=== PATIENT | female | born 1940 | race Caucasian/White ===

== ENCOUNTER 2020-01-22 10:23 | Inpatient (IN) | payer MEDICARE ==
--- NOTE | 2020-01-22 10:56 | ER Document Report ---
ED Medical Screen (RME) - General Chief Complaint: Medical Complaint Stated Complaint: WEAKNESS Time Seen by Provider: 01/22/20 10:44 Mode of Arrival: Medic Information source: Patient Notes: 79-year-old female presented to ED for multiple complaints. Daughter states that her son found her disoriented this morning but patient is answering all questions appropriate she is alert and oriented right now. She also has grossly edematous bilateral upper legs knees lower legs and feet both feet legs are extremely excoriated and weeping. She does have continence pads wrapped around and taped to both legs due to the weeping. Daughter states there is blackness on the one of the incontinence pads. These will all need to be removed when in a bed where will be a lot more comfortable for the patient. Her feet have toenails that are very long and not cared for. Patient is in a very unkempt state at this time. She states she stays in the bed most of the time. 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 I have greeted and performed a rapid initial assessment of this patient. A comprehensive ED assessment and evaluation of the patient, analysis of test results and completion of medical decision making process will be conducted by an additional ED providers. - Related Data Allergies/Adverse Reactions: aspirin Allergy (Verified 01/22/20 10:53) ibuprofen [From Motrin] Allergy (Verified 01/22/20 10:53) Penicillins Allergy (Verified 01/22/20 10:53) Physical Exam - Vital signs Vitals: Temp Pulse Resp BP Pulse Ox 97.6 F 85 20 141/60 H 97 01/22/20 10:01/22/20 10:01/22/20 10:01/22/20 10:29 01/22/20 10:29 Course - Vital Signs Vital signs: Temp Pulse Resp BP Pulse Ox 97.6 F 85 20 141/60 H 97 01/22/20 10:01/22/20 10:29 01/22/20 10:29 01/22/20 10:29 01/22/20 10:29
[2020-01-22 11:41] LABS: INTERNATIONAL RATION (INR) 1.43; PROTHROMBIN TIME 17.6 SEC (11.4-15.4)
[2020-01-22 11:42] LABS: HEMATOCRIT 40.8 % (36.0-47.0); HEMOGLOBIN 13.5 g/dL (12.0-15.5); MEAN CORPUSCULAR HEMOGLOBIN 29.8 pg (27.0-33.4); MEAN CORPUSCULAR HGB CONC 33.2 g/dL (32.0-36.0); MEAN CORPUSCULAR VOLUME 90 fl (80-97); RED BLOOD COUNT 4.54 10^6/uL (3.72-5.28); RED CELL DISTRIBUTION WIDTH 13.8 % (11.5-14.0); WHITE BLOOD COUNT 26.6 10^3/uL (4.0-10.5)
[2020-01-22 12:00] LABS: ABSOLUTE LYMPHOCYTES# (MANUAL) 1.3 10^3/uL (0.5-4.7); ABSOLUTE MONOCYTES # (MANUAL) 1.3 10^3/uL (0.1-1.4); BAND NEUTROPHILS % (MANUAL) 2 % (3-5); BASOPHILS % (MANUAL) 0 % (0-2); EOSINOPHILS % (MANUAL) 1 % (0-6); LYMPHOCYTES % (MANUAL) 4 % (13-45); MONOCYTES % (MANUAL) 5 % (3-13); SEGMENTED NEUTROPHILS % (MAN) 87 % (42-78); TOTAL CELLS COUNTED 100
[2020-01-22 12:01] LABS: PLATELET CLUMPS PRESENT; PLATELET COMMENT ADEQUATE; RBC MORPHOLOGY COMMENT NORMO-CYTIC/CHROMIC
[2020-01-22 12:02] LABS: PLATELET COUNT 254 10^3/uL (150-450)
[2020-01-22 12:06] LABS: ALKALINE PHOSPHATASE 50 U/L (38-126); ANION GAP 10 (5-19); ASPARTATE AMINO TRANSFERASE 50 U/L (14-36); BILIRUBIN,DIRECT 0.5 mg/dL (0.0-0.4); BILIRUBIN,TOTAL 1.1 mg/dL (0.2-1.3); BLOOD UREA NITROGEN 32 mg/dL (7-20); CALCIUM 8.9 mg/dL (8.4-10.2); CARBON DIOXIDE 22 mmol/L (22-30); CHLORIDE 100 mmol/L (98-107); CREATINE KINASE 559 U/L (30-135); GLUCOSE 109 mg/dL (75-110); POTASSIUM 4.6 mmol/L (3.6-5.0); TOTAL PROTEIN 7.7 g/dL (6.3-8.2)
--- NOTE | 2020-01-22 12:32 | RADIOLOGY REPORT (SQ) ---
EXAM DESCRIPTION: CT HEAD WITHOUT IMAGES COMPLETED DATE/TIME: 01/22/2020 12:13 pm REASON FOR STUDY: Disoriented this morning COMPARISON: None. TECHNIQUE: Axial images acquired through the brain without intravenous contrast. Images reviewed wi th bone, brain and subdural windows. Additional sagittal and coronal reconstructions were generated. Images stored on PACS. All CT scanners at this facility use dose modulation, iterative reconstruction, and/or weight based d osing when appropriate to reduce radiation dose to as low as reasonably achievable (ALARA). [facility]: Dose Right [facility]: CareDose [facility]: Dose Right [facility]: Teradose 4D [facility]: Smart Patient Education Systems RADIATION DOSE: CT Rad equipment meets quality standard of care and radiation dose reduction techniq ues were employed. CTDIvol: 53.2 mGy. DLP: 991 mGy-cm. mGy. LIMITATIONS: None. FINDINGS: VENTRICLES: Prominent. CEREBRUM: No masses. No hemorrhage. No midline shift. Areas of low density in the white matter mos t likely due to chronic micro-vascular ischemic change. No evidence for acute infarction. CEREBELLUM: No masses. No hemorrhage. No alteration of density. No evidence for acute infarction. EXTRAAXIAL SPACES: Mild age-related involutional change. No fluid collections. No masses. ORBITS AND GLOBE: No intra- or extraconal masses. Normal contour of globe without masses. CALVARIUM: No fracture. PARANASAL SINUSES: No fluid or mucosal thickening. SOFT TISSUES: No mass or hematoma. OTHER: No other significant finding. IMPRESSION: MILD CHRONIC CHANGES OF ATROPHY AND MICROVASCULAR ISCHEMIA. NO ACUTE PROCESS. EVIDENCE OF ACUTE STROKE: NO. TECHNICAL DOCUMENTATION: JOB ID: [id number] Quality ID # [id number]: Final reports with documentation of one or more dose reduction techniques (e.g., Au tomated exposure control, adjustment of the mA and/or kV according to patient size, use of iterative reconstruction technique) 2010 [employer]- All Rights Reserved Reading location - IP/workstation name: [email or web address]
[2020-01-22 14:50] LABS: APPEARANCE,URINE SLIGHTLY-CLOUDY; BILIRUBIN,URINE NEGATIVE (NEGATIVE); COLOR,URINE AMBER; GLUCOSE, URINE NEGATIVE (NEGATIVE); KETONES,URINE NEGATIVE (NEGATIVE); LEUKOCYTE ESTERASE,URINE NEGATIVE (NEGATIVE); NITRITE,URINE NEGATIVE (NEGATIVE); PROTEIN,URINE 100 mg/dL (NEGATIVE); URINE SPECIFIC GRAVITY 1.029
--- NOTE | 2020-01-22 14:55 | RADIOLOGY REPORT (SQ) ---
EXAM DESCRIPTION: CHEST SINGLE VIEW IMAGES COMPLETED DATE/TIME: 01/22/2020 2:29 pm REASON FOR STUDY: heart murmur/decreased breath sounds. COMPARISON: None. EXAM PARAMETERS: NUMBER OF VIEWS: One view. TECHNIQUE: Single frontal radiographic view of the chest acquired. RADIATION DOSE: NA LIMITATIONS: None. FINDINGS: LUNGS AND PLEURA: No opacities, masses or pneumothorax. No pleural effusion. 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 HEART AND VASCULAR STRUCTURES: Cardiomegaly without central vascular congestion. BONES: No acute findings. HARDWARE: None in the chest. OTHER: A large hiatal hernia may be present. 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 No acute pulmonary findings . TECHNICAL DOCUMENTATION: JOB ID: [id number] 2010 [employer]- All Rights Reserved Reading location - IP/workstation name: [email or web address]
[2020-01-22] MEDS ORDERED: CLINDAMYCIN 900 MG/D5W RTU 900 MG/50 ML RTUPB IV ONE (14:56)
[2020-01-22] MEDS ORDERED: VANCOMYCIN HCL INJ 1000 MG VIAL IV ONE (14:57)
--- NOTE | 2020-01-22 14:59 | RADIOLOGY REPORT (SQ) ---
EXAM DESCRIPTION: TIB FIB BILAT 2 VIEWS IMAGES COMPLETED DATE/TIME: 01/22/2020 2:30 pm REASON FOR STUDY: swelling pain bilat lower exts COMPARISON: None. NUMBER OF VIEWS: Two views. TECHNIQUE: Two radiographic images acquired of the right and left tibia and fibula to include the kn ee and ankle in at least one projection. LIMITATIONS: None. FINDINGS: MINERALIZATION: Decreased. BONES: No acute fracture dislocation. Tricompartment osteophytosis at the knees bilaterally. Degene rative changes at the bilateral ankles. SOFT TISSUES: . Extensive subcutaneous edema. No radiopaque foreign body. OTHER: No other significant finding. IMPRESSION: No evidence of acute bony abnormality of either tibia or fibula. Significant bilateral lower extremity subcutaneous edema. TECHNICAL DOCUMENTATION: JOB ID: [id number] 2010 [employer]- All Rights Reserved Reading location - IP/workstation name: [email or web address]
[2020-01-22] MEDS ORDERED: AZTREONAM INJ 1 GM VIAL IV ONE (15:00)
--- NOTE | 2020-01-22 15:37 | RADIOLOGY REPORT (SQ) ---
EXAM DESCRIPTION: VENOUS BILATERAL LOWER IMAGES COMPLETED DATE/TIME: 01/22/2020 3:23 pm REASON FOR STUDY: bilat leg pain/swelling COMPARISON: Same day radiograph TECHNIQUE: Dynamic and static amador scale and color images acquired of both lower extremity venous sy stems. Selected spectral images acquired with additional compression and augmentation maneuvers. Imag es stored on PACS. LIMITATIONS: Limited evaluation of the distal extremities due to lower extremity edema. FINDINGS: RIGHT LEG COMMON FEMORAL AND FEMORAL: Normal phasicity, compression and augmentation. No visualized echogenic m aterial on amador scale. No defects on color images. POPLITEAL: Normal compression and augmentation. No visualized echogenic material on amador scale. No de fects on color images. CALF VESSELS: Limited evaluation. GSV AND SSV: Normal compression. No visualized echogenic material on amador scale. No defects on color images. ANY DEEP VENOUS INSUFFICIENCY: Not evaluated. ANY EVIDENCE OF POPLITEAL CYST: No. OTHER: Significant subcutaneous edema. LEFT LEG COMMON FEMORAL AND FEMORAL: Normal phasicity, compression and augmentation. No visualized echogenic m aterial on amador scale. No defects on color images. POPLITEAL: Normal compression and augmentation. No visualized echogenic material on amador scale. No de fects on color images. CALF VESSELS: Limited evaluation. GSV AND SSV: Normal compression. No visualized echogenic material on amador scale. No defects on color images. ANY DEEP VENOUS INSUFFICIENCY: Not evaluated. ANY EVIDENCE POPLITEAL CYST: No. OTHER: Significant subcutaneous edema. IMPRESSION: No evidence of DVT or SVT to the level of the popliteal veins in either lower extremity. Limited evaluation of the tibials secondary to excessive edema. TECHNICAL DOCUMENTATION: JOB ID: [id number] 2010 [employer]- All Rights Reserved Reading location - IP/workstation name: [email or web address]
[2020-01-22] MEDS ORDERED: NORMAL SALINE 1000 ML 1,000 ML IV ONE (15:46)
[2020-01-22] MEDS ORDERED: DILTIAZEM HCL/D5W 125 MG/125 ML RTUINJ IV PRN (15:47)
--- NOTE | 2020-01-22 17:36 | ER Document Report ---
Entered by DANA ALMAGUER SCRIBE 01/22/20 [id number] Acting as scribe for:ANTONIA LOVE MD ED General - General Chief Complaint: Medical Complaint Stated Complaint: WEAKNESS Time Seen by Provider: 01/22/20 10:44 Mode of Arrival: Medic Information source: Patient, Relative - Daughter Notes: This 79 year old female patient presents to the ED via EMS with complaints of altered mental status. Daughter at bedside reports that her son called EMS because the patient was "disoriented" this morning. Daughter also reports that she believes the patient appears paler than the last time she saw her which was this past weekend. Patient is alert and able to answer questions appropriately. She reports that her legs are sore, but denies fever, shortness of breath, headache, chest pain, abdominal pain, sore throat, or known COVID exposure. She states that she did not eat breakfast this morning and that her last bowel movement was yesterday. Patient reports a history of rheumatoid arthritis, hemophilia, heart murmur, and appendectomy. - Related Data Allergies/Adverse Reactions: aspirin Allergy (Verified 01/22/20 10:53) diphenhydramine [From Benadryl] Allergy (Verified 01/22/20 16:23) ibuprofen [From Motrin] Allergy (Verified 01/22/20 10:53) Iodinated Contrast Media Allergy (Verified 01/22/20 16:23) Penicillins Allergy (Verified 01/22/20 10:53) Past Medical History - General Information source: Patient, [facility] Records - Social History Smoking Status: Never Smoker Cigarette use (# per day): No Chew tobacco use (# tins/day): No Smoking Education Provided: No Frequency of alcohol use: None Lives with: Family Family History: Reviewed & Not Pertinent - Past Medical History Cardiac Medical History: Reports: Hx Heart Murmur, Other - Hx Hemophilia Musculoskeletal Medical History: Reports Hx Arthritis Past Surgical History: Reports: Hx Appendectomy Review of Systems - Review of Systems Constitutional: See HPI. denies: Fever EENT: See HPI. denies: Throat pain Cardiovascular: See HPI. denies: Chest pain Respiratory: See HPI. denies: Short of breath Gastrointestinal: See HPI. denies: Abdominal pain, Diarrhea, Nausea, Vomiting Genitourinary: No symptoms reported Female Genitourinary: No symptoms reported Musculoskeletal: See HPI, Leg swelling - and pain Skin: No symptoms reported Hematologic/Lymphatic: No symptoms reported Neurological/Psychological: See HPI, Other - Altered mental status. denies: Headaches -: Yes All other systems reviewed and negative Physical Exam - Vital signs Vitals: Temp Pulse Resp BP Pulse Ox 97.6 F 85 20 141/60 H 97 01/22/20 10:29 01/22/20 10:29 01/22/20 10:29 01/22/20 10:29 01/22/20 10:29 - General General appearance: Alert In distress: None - HEENT Head: Normocephalic, Atraumatic Eyes: Normal Pupils: PERRL - Respiratory Respiratory status: No respiratory distress Chest status: Nontender Breath sounds: Normal Chest palpation: Normal - Cardiovascular Rhythm: Regular Murmur: Yes Systolic murmur grade 1-6: 2 Friction rub: No Gallop: None auscultated - Abdominal Inspection: Obese Distension: No distension Bowel sounds: Normal Tenderness: Nontender Organomegaly: No organomegaly - Back Back: Normal, Nontender - Extremities General upper extremity: Normal inspection - red color General lower extremity: Tender - Bilateral lower extremity tenderness to touch, Edema - Bilateral lower extremities are swollen with cobblestoned skin that have multiple superficial punctate abrasions.. No: Normal color Foot: Other - Toenails appear mycotic, Toenail on left great toe is loose - Neurological Neuro grossly intact: Yes Orientation: AAOx4 [place] Coma Scale Eye Opening: Spontaneous [place] Coma Scale Verbal: Oriented [place] Coma Scale Motor: Obeys Commands [place] Coma Scale Total: 15 - Psychological Associated symptoms: Normal affect, Normal mood - Skin Skin Temperature: Warm Skin Moisture: Dry Skin Color: Normal Course - Re-evaluation Re-evalutation: 01/23/20 04:10 patien has been resting comfortably in bed. - Vital Signs Vital signs: Temp Pulse Resp BP Pulse Ox 99.3 F 79 16 149/62 H 94 01/23/20 00:23 01/23/20 00:23 01/23/20 00:23 01/23/20 00:23 01/23/20 00:23 01/23/20 04:12 vital signs stable. - Laboratory Result Diagrams: 01/22/20 11:17 01/22/20 11:17 Laboratory results interpreted by me: 10/01/22/20 01/22/20 11:17 11:17 11:17 WBC 26.6 H Seg Neuts % (Manual) 87 H Band Neutrophils % 2 L Lymphocytes % (Manual) 4 L Abs Neuts (Manual) 23.7 H PT 17.6 H APTT 38.0 H D-Dimer Sodium 132.3 L BUN 32 H Creatinine 1.36 H Est GFR ( Amer) 46 L Est GFR (MDRD) Non-Af 38 L Direct Bilirubin 0.5 H AST 50 H Creatine Kinase 559 H Urine Protein Urine Blood Urine Urobilinogen 01/22/20 01/22/20 11:17 14:34 WBC Seg Neuts % (Manual) Band Neutrophils % Lymphocytes % (Manual) Abs Neuts (Manual) PT APTT D-Dimer 2.12 H Sodium BUN Creatinine Est GFR ( Amer) Est GFR (MDRD) Non-Af Direct Bilirubin AST Creatine Kinase Urine Protein 100 H Urine Blood SMALL H Urine Urobilinogen 2.0 H 01/23/20 04:13 elevated WBC 27K, and bun/cr elevated 32/1.36, and d dimer positive at 2.12. Pateint has cellulitis and elevated WBC count due to skin infection. Apparent acut kidney injury. - Diagnostic Test Radiology results interpreted by me: 01/23/20 04:[address] 01/22/20 10:52 IMPRESSION: MILD CHRONIC CHANGES OF ATROPHY AND MICROVASCULAR ISCHEMIA. NO ACUTE PROCESS. EVIDENCE OF ACUTE STROKE: NO. 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 No acute pulmonary findings. Tibia/Fibula X-Ray 01/22/20 13:28 IMPRESSION: No evidence of acute bony abnormality of either tibia or fibula. Significant bilateral lower extremity subcutaneous edema. Venous Doppler Study 01/22/20 13:29 IMPRESSION: No evidence of DVT or SVT to the level of the popliteal veins in either lower extremity. Limited evaluation of the tibials secondary to excessive edema. Ct scan of head shows no acute process, and no evidence of Stroke. Chest xray with Cardiomegaly, aortic arch ?aneursym, and clear lung verduzco. Bilateral tibfib xrays shows significant edema without any bony injuries. Bilat venous doppler exam shows no evidence of DVT or SVT in either leg. Discharge - Discharge Clinical Impression: Cellulitis of both lower extremities, Acute kidney injury Leukocytosis Qualifiers: Leukocytosis type: bandemia Qualified Code(s): D72.825 - Bandemia Venous stasis dermatitis Qualifiers: Laterality: bilateral Qualified Code(s): I87.2 - Venous insufficiency (chronic) (peripheral) Condition: Good Disposition: ADMITTED INPATIENT Admitting Provider: Nivia (Hospitalist) Unit Admitted: Medical Floor I personally performed the services described in the documentation, reviewed and edited the documentation which was dictated to the scribe in my presence, and it accurately records my words and actions.
[2020-01-22] MEDS ORDERED: AZTREONAM INJ 1 GM VIAL ONE (17:56)
[2020-01-22] MEDS ORDERED: MAGNESIUM HYDROXIDE SUSP 30 ML UDCUP PO PRN (20:06)
[2020-01-22] MEDS ORDERED: ONDANSETRON 4 MG TAB.RAPDIS PO PRN (20:06)
[2020-01-22] MEDS ORDERED: OXYCODONE-ACETAMINOPHEN 5-325 MG TABLET PO PRN (20:06)
[2020-01-22] MEDS ORDERED: TEMAZEPAM 7.5 MG CAPSULE PO PRN (20:06)
[2020-01-22] MEDS ORDERED: MAG HYDROX/AL HYDROX/SIMETH SUSP 30 ML UDCUP PO PRN (20:06)
--- NOTE | 2020-01-22 20:46 | PDOC H&P ---
History of Present Illness Admission Date/PCP: 01/22/20 17:55 YAMILETH TYJaquan Patient complains of: Swollen red painful legs History of Present Illness: RAFAL BORJA is a 79 year old female with only reported history of venous insufficiency presents with red painful swollen legs. The patient's daughter as well as the patient endorses several weeks of worsening. The daughter reports that in fact it has been longer. The cobblestoning and keratin scaling of the skin suggest significant chronicity. The patient is afebrile however her white blood cell count is 26.6 with 2% bands. D-dimer is elevated at 2.12. Doppler studies are negative for DVT. The elevated D-dimer certainly could be due to the significant inflammation of both legs. The patient is also complaining of discomfort on her heels. She has several ayo horn toenails both generalized e rythema to the level of the knee. The patient and her daughter are poor historians. The patient will be admitted to the hospital service. She will be given IV antibiotics. Wound care consult will be obtained. The patient will benefit from treatment of the ulcerations as well as compression therapy. The antibiotics should resolve the leukocytosis. Because of her multiple allergies clindamycin and aztreonam will be used. She also received a dose of vancomycin in the emergency department. Past Medical History Cardiac Medical History: Reports: Heart Murmur, Other - Hx Hemophilia Pulmonary Medical History: Denies: Chronic Obstructive Pulmonary Disease (COPD), Pneumonia, Respiratory Failure EENT Medical History: Reports: Cataracts Neurological Medical History: Denies: Ischemic CVA, Seizures Endocrine Medical History: Denies: Diabetes Mellitus Type 2 Renal/ Medical History: Denies: Chronic Kidney Disease Malignancy Medical History: Reports: None GI Medical History: Denies: Cirrhosis, Gastroesophageal Reflux Disease, Peptic Ulcer Disease Musculoskeltal Medical History: Reports: Arthritis Skin Medical History: Reports: Other - Stasis dermatitis Psychiatric Medical History: Denies: Alcohol Dependency, Substance Abuse, Tobacco Dependency Traumatic Medical History: Reports: None Hematology: Reports: None Infectious Medical History: Reports: None Past Surgical History Past Surgical History: Reports: Appendectomy Social History Information Source: Patient, Relative Lives with: Family Smoking Status: Never Smoker Electronic Cigarette use?: No Frequency of Alcohol Use: None Hx Recreational Drug Use: No Hx Prescription Drug Abuse: No - Advance Directive Resuscitation Status: Full Code Family History Family History: CAD, Malignancy, Other - Asthma, bronchiolitis, rheumatoid arthritis Parental Family History Reviewed: Yes Children Family History Reviewed: Yes Sibling(s) Family History Reviewed.: Yes Medication/Allergy Allergies/Adverse Reactions: aspirin Allergy (Verified 01/22/20 10:53) diphenhydramine [From Benadryl] Allergy (Verified 01/22/20 16:23) ibuprofen [From Motrin] Allergy (Verified 01/22/20 10:53) Iodinated Contrast Media Allergy (Verified 01/22/20 16:23) Penicillins Allergy (Verified 01/22/20 10:53) Review of Systems All systems: reviewed and no additional remarkable complaints except as stated Constitutional: PRESENT: fatigue Eyes: PRESENT: visual disturbances Cardiovascular: PRESENT: edema Integumentary: PRESENT: erythema, other - Stasis ulcerations Physical Exam Vital Signs: Temp Pulse Resp BP Pulse Ox 97.8 F 85 24 H 131/63 H 97 01/22/20 10:44 01/22/20 10:29 01/22/20 19:01 01/22/20 19:01 01/22/20 19:01 General appearance: PRESENT: cooperative, mild distress, well-developed Head exam: PRESENT: atraumatic, normocephalic Eye exam: PRESENT: conjunctiva pink, EOMI, PERRLA. ABSENT: scleral icterus Ear exam: PRESENT: normal external ear exam. ABSENT: bleeding, drainage Mouth exam: PRESENT: dry mucosa, tongue midline Neck exam: ABSENT: carotid bruit, JVD, lymphadenopathy, thyromegaly, tracheostomy Respiratory exam: PRESENT: clear to auscultation phyllis, symmetrical, unlabored. ABSENT: accessory muscle use, prolonged expiratory phas, rales, rhonchi, tachypnea, wheezes Cardiovascular exam: PRESENT: RRR, +S1, +S2. ABSENT: bradycardia, diastolic murmur, irregular rhythm, systolic murmur, tachycardia GI/Abdominal exam: PRESENT: normal bowel sounds, soft. ABSENT: distended, guarding, tenderness Rectal exam: PRESENT: deferred Gentrourinary exam: ABSENT: indwelling catheter Extremities exam: PRESENT: pedal edema, tenderness, +2 edema Musculoskeletal exam: PRESENT: tenderness Neurological exam: PRESENT: alert, awake, oriented to person, oriented to place, oriented to time, oriented to situation, CN II-XII grossly intact - Decreased vision from cataracts. ABSENT: altered Psychiatric exam: PRESENT: flat affect. ABSENT: agitated, anxious Focused psych exam: ABSENT: delusional, paranoid, restlessness Skin exam: PRESENT: erythema - Significant erythema from toes to knees bilaterally, warm - Skin is very warm to the touch, other - Cobblestoning and keratin scaling as well as ayo horn nails Results Laboratory Results: 01/22/20 11:17 01/22/20 11:17 01/22/20 01/22/20 01/22/20 11:17 11:17 14:34 WBC 26.6 H RBC 4.54 Hgb 13.5 Hct 40.8 MCV 90 MCH 29.8 MCHC 33.2 RDW 13.8 Plt Count 254 Seg Neutrophils % Not Reportable Sodium 132.3 L Potassium 4.6 Chloride 100 Carbon Dioxide 22 Anion Gap 10 BUN 32 H Creatinine 1.36 H Est GFR ( Amer) 46 L Glucose 109 Calcium 8.9 Phosphorus 3.0 Magnesium 2.1 Total Bilirubin 1.1 AST 50 H Alkaline Phosphatase 50 Total Protein 7.7 Albumin 4.0 Lipase 33.3 Urine Color JOHNATHON Urine Appearance SLIGHTLY-CLOUDY Urine pH 5.0 Ur Specific [place] 1.029 Urine Protein 100 H Urine Glucose (UA) NEGATIVE Urine Ketones NEGATIVE Urine Blood SMALL H Urine Nitrite NEGATIVE Ur Leukocyte Esterase NEGATIVE Urine WBC (Auto) 4 Urine RBC (Auto) 4 01/22/20 11:17 Creatine Kinase 559 H Impressions: Head CT 01/22/20 10:52 IMPRESSION: MILD CHRONIC CHANGES OF ATROPHY AND MICROVASCULAR ISCHEMIA. NO ACUTE PROCESS. EVIDENCE OF ACUTE STROKE: NO. 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 No acute pulmonary findings. Tibia/Fibula X-Ray 01/22/20 13:28 IMPRESSION: No evidence of acute bony abnormality of either tibia or fibula. Significant bilateral lower extremity subcutaneous edema. Venous Doppler Study 01/22/20 13:29 IMPRESSION: No evidence of DVT or SVT to the level of the popliteal veins in either lower extremity. Limited evaluation of the tibials secondary to excessive edema. Assessment and Plan - Diagnosis (1) Cellulitis of both lower extremities Is this a current diagnosis for this admission?: Yes (2) Stasis edema with ulcer of both lower extremities Is this a current diagnosis for this admission?: Yes (3) Venous stasis dermatitis Qualifiers: Laterality: bilateral Qualified Code(s): I87.2 - Venous insufficiency (chronic) (peripheral) Is this a current diagnosis for this admission?: Yes (4) Acute kidney injury Is this a current diagnosis for this admission?: Yes (5) Leg pain, bilateral Is this a current diagnosis for this admission?: Yes (6) Leukocytosis Qualifiers: Leukocytosis type: bandemia Qualified Code(s): D72.825 - Bandemia Is this a current diagnosis for this admission?: Yes (7) Cardiomegaly Is this a current diagnosis for this admission?: Yes - Plan Summary Summary: The patient be admitted to the hospitalist service. She received IV fluids and IV antibiotics. We will monitor her electrolytes. She will require analgesia. A wound care consult has been ordered as well. Cellulitis bilateral lower extremities 01/22/2020-patient with marked cellulitis bilateral lower extremities. Significant inflammatory burden noted. Due to multiple allergies will utilize aztreonam and clindamycin. We will hold on vancomycin due to her acute kidney injury. Stasis dermatitis both legs 01/22/2020-patient with erythema, cobblestoning and keratin scaling suggestive of stasis dermatitis with chronicity. Will benefit from compression. Will need improvement in cellulitis and leg pain prior to applying compression. Stasis ulcers bilateral 01/22/2020-sporadic small ulcerations both lower legs. She is having heel discomfort but there is no broken skin. We will need to elevate legs in order offloading boots such as Prevalon boots with wedges. Bilateral leg pain 01/22/2020-significant leg pain. Given the marked erythema and skin warmth of the legs the pain complaints are certainly appropriate. Hopefully with antibiotic therapy and reduction of edema the pain will subside. Leukocytosis 01/22/2020-white blood cell count significantly elevated at 26.6. Treatment with antibiotics and fluids should help resolve this. I also believe there is a marked inflammatory change and this is the cause of the increased D-dimer and creatinine kinase. Doppler studies were negative for DVT in both lower legs. Acute kidney injury 01/22/2020-we will administer gentle IV fluids and monitor renal function. We will also monitor intake and output. Cardiomegaly 01/22/2020-x-ray reveals cardiomegaly with possible enlargement of the aortic arch. We will obtain an echocardiogram to assess for heart failure as well as initial evaluation of the proximal aorta. If indicated consider CT scan of the chest. The patient will not be able to have contrast as she is allergic to iodinated contrast media and has an acute kidney injury. - Time Time Spent with patient: 35 or more minutes Medications reviewed and adjusted accordingly: Yes Anticipated Discharge Disposition: Home with Home Health Anticipated Discharge Timeframe: Likely 4 to 5 days - Inpatient Certification Based on my medical assessment, after consideration of the patient's comorbidities, presenting symptoms, or acuity I expect that the services needed warrant INPATIENT care.: Yes I certify that my determination is in accordance with my understanding of Medicare's requirements for reasonable and necessary INPATIENT services [42 CFR 412.3e].: Yes Medical Necessity: Need Close Monitoring Due to Risk of Patient Decompensation, Need For IV Fluids, Need for Pain Control, Need for IV Antibiotics Post Hospital Care: D/C or Transfer Summary
[2020-01-22] MEDS: NORMAL SALINE 1000 ML 1,000 ML IV PRN (21:24)
[2020-01-22] MEDS ORDERED: AZTREONAM 1 GM in DEXTROSE 5%-WATER 50 ML IV SCH (22:00)
[2020-01-23] MEDS: AZTREONAM 1 GM in DEXTROSE 5%-WATER 50 ML IV SCH ×3 (03:03→17:41)
[2020-01-23] MEDS: CLINDAMYCIN 900 MG/D5W RTU 900 MG/50 ML RTUPB IV SCH ×3 (04:33→18:13)
[2020-01-23] MEDS ORDERED: PANTOPRAZOLE SODIUM 20 MG TABLET.DR PO SCH (06:00)
[2020-01-23 06:45] LABS: ABSOLUTE BASOPHILS # (AUTO) 0.1 10^3/uL (0.0-0.2); ABSOLUTE LYMPHOCYTES (AUTO) 0.9 10^3/uL (0.5-4.7); ABSOLUTE MONOCYTES (AUTO) 0.7 10^3/uL (0.1-1.4); ABSOLUTE NEUT (AUTO) 15.3 10^3/uL (1.7-8.2); BASOPHILS % (AUTO) 0.6 % (0-2); HEMOGLOBIN 11.5 g/dL (12.0-15.5); LYMPHOCYTES % (AUTO) 5.1 % (13-45); MEAN CORPUSCULAR HEMOGLOBIN 29.8 pg (27.0-33.4); MEAN CORPUSCULAR HGB CONC 33.7 g/dL (32.0-36.0); MEAN CORPUSCULAR VOLUME 88 fl (80-97); MONOCYTES % (AUTO) 4.3 % (3-13); PLATELET COUNT 201 10^3/uL (150-450); RED BLOOD COUNT 3.85 10^6/uL (3.72-5.28); RED CELL DISTRIBUTION WIDTH 13.8 % (11.5-14.0); TOTAL CELLS COUNTED % (AUTO) 100 %
[2020-01-23 06:47] LABS: INTERNATIONAL RATION (INR) 1.41; PROTHROMBIN TIME 17.4 SEC (11.4-15.4)
[2020-01-23 06:50] LABS: D-DIMER 1.73 ug/mL (0.00-0.50)
[2020-01-23 07:05] LABS: ANION GAP 8 (5-19); BLOOD UREA NITROGEN 26 mg/dL (7-20); CALCIUM 8.2 mg/dL (8.4-10.2); CARBON DIOXIDE 22 mmol/L (22-30); CHLORIDE 101 mmol/L (98-107); CREATINE KINASE 836 U/L (30-135); GLUCOSE 138 mg/dL (75-110); POTASSIUM 4.3 mmol/L (3.6-5.0)
[2020-01-23] MEDS: NORMAL SALINE 1000 ML 1,000 ML IV PRN (07:30)
[2020-01-23] MEDS: DOCUSATE SODIUM 100 MG CAPSULE PO SCH ×2 (10:18→17:41)
[2020-01-23] MEDS: MULTIVITAMIN TABLET PO SCH (10:18)
[2020-01-23] MEDS: ASCORBIC ACID 500 MG TABLET PO SCH ×2 (10:21→17:41)
[2020-01-23] MEDS: ENOXAPARIN SODIUM INJ 40 MG/0.4 ML DISP.SYRIN SUBCUT SCH (10:22)
[2020-01-23] MEDS: ZINC SULFATE 220 MG CAPSULE PO SCH (10:59)
[2020-01-23] MEDS ORDERED: SODIUM CHLORIDE 1 GM TABLET PO SCH (15:30)
--- NOTE | 2020-01-23 15:44 | PDOC PROGRESS REPORT ---
Subjective Progress Note for:: 01/23/20 Subjective:: Patient seen on afternoon rounds. She is resting in bed comfortably and awakes easily when I say her name. Her daughter is in the room as well. Patient continues to complain of bilateral lower extremity pain and swelling. She states that she had "blisters" on the left lower extremity, one specifically on the lateral anterior aspect that she actually popped prior to coming into the hospital. When she popped it is expressed which he considered to be a rather la rge amount of clear drainage. Denies pus like drainage from either legs. She also states that she has been feeling a little uncomfortable on the left side of her back which she relates is secondary to a hospital bed. The nurse has provided her with a pillow and adjusted her positioning, which she now feels significantly more comfortable. Upon further questioning the patient denies any fever, chills, chest pain, palpitations, cough, abdominal pain, nausea vomiting or diarrhea. Patient lives at home with her her 2 grandsons who help take care of her. She is able to get up and move around but does become short of breath when exerting herself. Her grandsons grocery shop for her and help her with her activities of daily living but she is able to cook her own meals. Patient's daughter qu estions if there is any way they could get a adjustable bed for her at home. Patient's primary care physician was historically Dr. Lacey, though per the patient and her daughter patient has not followed up with him in several years, this is secondary to insurance issues which they are working on getting fixed. Discussed case with patient's nurse. Patient's nurse relates discomfort in hospital bed. She provides me with no further concerns or complaints. Reason For Visit: BILATERAL CELLULITIS,VENOUS STASIS DERMATITIS Physical Exam Vital Signs: Temp Pulse Resp BP Pulse Ox 99.3 F 79 16 149/62 H 94 01/23/20 10:00 01/23/20 00:23 01/23/20 00:23 01/23/20 00:23 01/23/20 00:23 Intake & Output 01/22/20 01/23/20 01/24/20 06:59 06:59 06:59 Intake Total 2170 50 Output Total 300 Balance 1870 50 Weight 91 kg General appearance: PRESENT: no acute distress, cooperative, obese Head exam: PRESENT: atraumatic, normocephalic Eye exam: PRESENT: conjunctival injection, EOMI, PERRLA. ABSENT: scleral icterus Mouth exam: PRESENT: dry mucosa, tongue midline Neck exam: PRESENT: full ROM. ABSENT: carotid bruit, lymphadenopathy, tenderne ss, thyromegaly Respiratory exam: PRESENT: clear to auscultation phyllis, symmetrical, unlabored. ABSENT: crackles, retraction, rhonchi, tachypnea, wheezes Cardiovascular exam: PRESENT: RRR, +S1, +S2. ABSENT: diastolic murmur, systolic murmur Pulses: PRESENT: normal radial pulses GI/Abdominal exam: PRESENT: normal bowel sounds, soft. ABSENT: distended, firm, tenderness Gentrourinary exam: ABSENT: indwelling catheter Extremities exam: PRESENT: full ROM, pedal edema, tenderness, +2 edema Musculoskeletal exam: PRESENT: ambulatory, full ROM, tenderness Neurological exam: PRESENT: alert, awake, oriented to person, oriented to place, oriented to time, oriented to situation. ABSENT: altered Psychiatric exam: PRESENT: appropriate affect, normal mood Skin exam: PRESENT: dry, erythema - right lower extremity extending from toes up to knee, demarcated, consistent with cellulitis., warm - Right lower extremity warm to the touch, other - Noteable cobblestoning and keratin scaling noted with the left lower extermity appearing more chronic than the right. Toes nails ayo horn in apperance. Results Laboratory Results: 01/23/20 06:21 01/23/20 06:21 01/22/20 01/23/20 01/23/20 14:34 06:21 06:21 WBC 17.0 H RBC 3.85 Hgb 11.5 L Hct 34.0 L MCV 88 MCH 29.8 MCHC 33.7 RDW 13.8 Plt Count 201 Seg Neutrophils % 90.0 H Sodium 131.1 L Potassium 4.3 Chloride 101 Carbon Dioxide 22 Anion Gap 8 BUN 26 H Creatinine 1.02 Est GFR ( Amer) > 60 Glucose 138 H Calcium 8.2 L Magnesium 1.9 Urine Color JOHNATHON Urine Appearance SLIGHTLY-CLOUDY Urine pH 5.0 Ur Specific [place] 1.029 Urine Protein 100 H Urine Glucose (UA) NEGATIVE Urine Ketones NEGATIVE Urine Blood SMALL H Urine Nitrite NEGATIVE Ur Leukocyte Esterase NEGATIVE Urine WBC (Auto) 4 Urine RBC (Auto) 4 01/22/20 01/23/20 11:17 06:21 Creatine Kinase 559 H 836 H Impressions: Head CT 01/22/20 10:52 IMPRESSION: MILD CHRONIC CHANGES OF ATROPHY AND MICROVASCULAR ISCHEMIA. NO ACUTE PROCESS. EVIDENCE OF ACUTE STROKE: NO. 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 No acute pulmonary findings. Tibia/Fibula X-Ray 01/22/20 13:28 IMPRESSION: No evidence of acute bony abnormality of either tibia or fibula. Significant bilateral lower extremity subcutaneous edema. Venous Doppler Study 01/22/20 13:29 IMPRESSION: No evidence of DVT or SVT to the level of the popliteal veins in either lower extremity. Limited evaluation of the tibials secondary to excessive edema. Assessment and Plan - Diagnosis (1) Cellulitis of right lower extremity Is this a current diagnosis for this admission?: Yes (2) Acute kidney injury Is this a current diagnosis for this admission?: Yes (3) Cardiomegaly Is this a current diagnosis for this admission?: Yes (4) Leg pain, bilateral Is this a current diagnosis for this admission?: Yes (5) Leukocytosis Qualifiers: Leukocytosis type: bandemia Qualified Code(s): D72.825 - Bandemia Is this a current diagnosis for this admission?: Yes (6) Stasis edema with ulcer of both lower extremities Is this a current diagnosis for this admission?: Yes (7) Venous stasis dermatitis Qualifiers: Laterality: bilateral Qualified Code(s): I87.2 - Venous insufficiency (chronic) (peripheral) Is this a current diagnosis for this admission?: Yes (8) Hyponatremia Is this a current diagnosis for this admission?: Yes - Plan Summary Summary: The patient be admitted to the hospitalist service. She received IV fluids and IV antibiotics. We will monitor her electrolytes. She will require analgesia. A wound care consult has been ordered as well. Cellulitis right lower extremity 01/22/2020-patient with marked cellulitis bilateral lower extremities. Significant inflammatory burden noted. Due to multiple allergies will utilize aztreonam and clindamycin. We will hold on vancomycin due to her acute kidney injury. 01/23/2020- RLE remains warm to the touch and erythematous. We will discontinue aztreonam at this time. Continue with clindamycin as this provides sufficient coverage. Suspect this is the cause of leukocytosis. Stasis dermatitis both legs 01/22/2020-patient with erythema, cobblestoning and keratin scaling suggestive of stasis dermatitis with chronicity. Will benefit from compression. Will need improvement in cellulitis and leg pain prior to applying compression. 01/23/2020- Awaiting improvement in cellulitis prior to treatment with compression. Wound care has been consulted, appreciate input. Wound care recommend hibi-clense, silver dressings and outpatient f/u at [facility]. Stasis ulcers bilateral 01/22/2020-sporadic small ulcerations both lower legs. She is having heel discomfort but there is no broken skin. We will need to elevate legs in order offloading boots such as Prevalon boots with wedges. 01/23/2020-Small ulcer bilateral LE with LLE>RLE. Prevalon boots with wedges for offloading. Wound care consult placed, appreciate input. Bilateral leg pain 01/22/2020-significant leg pain. Given the marked erythema and skin warmth of the legs the pain complaints are certainly appropriate. Hopefully with antibiotic therapy and reduction of edema the pain will subside. 01/23/2020-Continue leg pain. Minimal improvement with abx therapy, suspect greater improvement once edema decreases. Physical therapy consulted for evaluation. Leukocytosis 01/22/2020-white blood cell count significantly elevated at 26.6. Treatment with antibiotics and fluids should help resolve this. I also believe there is a marked inflammatory change and this is the cause of the increased D-dimer and creatinine kinase. Doppler studies were negative for DVT in both lower legs. 01/23/2020-WBC improved 26.6 -> 17.0 with azoreonam and clindamycin day 2. BC, UC negative at this time. No other signs of infection on skin exam outside of bilateral LE edema and erythema with RLE > LLE. Aztreonam discontinued at this time, believe clinadmycin provides sufficient coverage. Acute kidney injury 01/22/2020-we will administer gentle IV fluids and monitor renal function. We will also monitor intake and output. 01/23/2020-Cr improved (1.36 -> 1.902) and BUN improved (32 -> 26) with IV fluids. Continue to monitor, continue with IVF Cardiomegaly 01/22/2020-x-ray reveals cardiomegaly with possible enlargement of the aortic arch. We will obtain an echocardiogram to assess for heart failure as well as initial evaluation of the proximal aorta. If indicated consider CT scan of the chest. The patient will not be able to have contrast as she is allergic to iodinated contrast media and has an acute kidney injury. 01/23/2020-Echo pending results. Hyponatremia 01/23/2020- NA on admission 132.2 -> 131.1 today. NaCl PO today. Monitor on BMP daily. - Time Time Spent with patient: 15-24 minutes Medications reviewed and adjusted accordingly: Yes Anticipated Discharge Disposition: Home with Home Health Anticipated Discharge Timeframe: within 24 hours
--- NOTE | 2020-01-23 18:49 | XCELERA REPORT ---
[address] [address] Transthoracic Echocardiogram Report Name: RAFAL BORJA Age: 79 yrs Gender: Female : 1940 Patient Status: Inpatient Patient Location: [address] [place], [place] [id number] Study Date: 01/23/2020 07:48 AM Height: 62 in Weight: 160 lb BSA: 1.7 m2 Procedure: A complete two-dimensional transthoracic echocardiogram was performed (2D, M-mode, spectral and color flow Doppler). Study Quality: Good. Reason For Study: Cardiomegaly, assess function and proximal aorta Ordering Physician: NORMA HIGUERA Performed By: Keily Perales Interpretation Summary Pt. had rheumatic fever in the past per pt. The left ventricle is grossly normal size. Left ventricular systolic function is normal. The Ejection Fraction estimate is 60-65%. LV diastolic function could not be adequately assessed. The left ventricular wall motion is normal. Mild LAE. Moderate MR, moderate AI, moderate TR. Borderline to mildly elevated pulmonary pressures and estimated between 37 and 42 mmHg. Normal aortic root dimension. Proximal ascending aorta was not well visualized therefore no measurement was obtained. MMode/2D Measurements & Calculations RVDd: 2.2 cm LVIDd: 4.8 cm FS: 34.6 % Ao root diam: IVSd: 0.87 cm LVIDs: 3.2 cm EDV(Teich): 2.7 cm 109.8 ml Ao root area: LVPWd: 0.94 cm ESV(Teich): 40.0 ml5.5 cm2 EF(Teich): 63.6 % EDV(MOD-sp4): SV(MOD-sp4): 66.6 ml 37.3 ml ESV(MOD-sp4): 29.3 ml EF(MOD-sp4): 56.0 % Doppler Measurements & Calculations MV E max vikram: MV dec slope: Ao V2 max: AI max vikram: 134.3 cm/sec 158.0 cm/sec 432.1 cm/sec 860.5 cm/sec2 Ao max PG: AI max P.7 mmHg MV dec time: 10.0 mmHg AI dec slope: 0.16 sec 185.9 cm/sec2 AI P1/2t: 680.7 msec LV V1 max PG: MR max vikram: PA V2 max: TR max vikram: 6.1 mmHg 475.9 cm/sec 101.6 cm/sec 283.9 cm/sec LV V1 max: MR max P.6 mmHg PA max PG: TR max P.2 mmHg 123.6 cm/sec 4.1 mmHg Left Ventricle The left ventricle is grossly normal size. Left ventricular systolic function is normal. The Ejection Fraction estimate is 60-65%. LV diastolic function could not be adequately assessed. The left ventricular wall motion is normal. Right Ventricle The right ventricle is grossly normal size. The right ventricular systolic function is normal. Atria The right atrium is normal. The left atrium is mildly dilated. Mitral Valve The mitral valve leaflets are sclerotic, but show no functional abnormalities. The mitral valve appears rheumatic. There is a moderate amount of mitral regurgitation. Aortic Valve The aortic valve is sclerotic, but shows no functional abnormality. The aortic valve is trileaflet. There is a moderate amount of aortic regurgitation. Tricuspid Valve The tricuspid is normal in structure and function. There is a moderate amount of tricuspid regurgitation. Borderline to mildly elevated pulmonary pressures and estimated between 37 and 42 mmHg. Pulmonic Valve The pulmonic valve is normal in structure and function. There is no pulmonic valvular regurgitation. : NORMA HIGUERA Antonio
[2020-01-23] MEDS ORDERED: MELATONIN 3 MG TABLET PO PRN (19:32)
[2020-01-24] MEDS: CLINDAMYCIN 900 MG/D5W RTU 900 MG/50 ML RTUPB IV SCH ×3 (01:31→17:29)
[2020-01-24 06:28] LABS: ABSOLUTE EOSINOPHILS # (AUTO) 0.1 10^3/uL (0.0-0.6); ABSOLUTE MONOCYTES (AUTO) 0.6 10^3/uL (0.1-1.4); ABSOLUTE NEUT (AUTO) 6.3 10^3/uL (1.7-8.2); BASOPHILS % (AUTO) 0.3 % (0-2); EOSINOPHILS % (AUTO) 0.9 % (0-6); HEMATOCRIT 33.9 % (36.0-47.0); HEMOGLOBIN 11.4 g/dL (12.0-15.5); LYMPHOCYTES % (AUTO) 12.9 % (13-45); MEAN CORPUSCULAR HEMOGLOBIN 30.3 pg (27.0-33.4); MEAN CORPUSCULAR HGB CONC 33.8 g/dL (32.0-36.0); MEAN CORPUSCULAR VOLUME 90 fl (80-97); MONOCYTES % (AUTO) 7.4 % (3-13); PLATELET COUNT 198 10^3/uL (150-450); RED BLOOD COUNT 3.78 10^6/uL (3.72-5.28); RED CELL DISTRIBUTION WIDTH 14.1 % (11.5-14.0); SEGMENTED NEUTROPHILS % (AUTO) 78.5 % (42-78); TOTAL CELLS COUNTED % (AUTO) 100 %
[2020-01-24 06:46] LABS: ANION GAP 8 (5-19); BLOOD UREA NITROGEN 19 mg/dL (7-20); CALCIUM 8.1 mg/dL (8.4-10.2); CARBON DIOXIDE 23 mmol/L (22-30); CHLORIDE 105 mmol/L (98-107); GLUCOSE 107 mg/dL (75-110); POTASSIUM 4.3 mmol/L (3.6-5.0)
[2020-01-24] MEDS: ACETAMINOPHEN 325 MG TABLET PO PRN ×2 (08:28→17:35)
[2020-01-24] MEDS: MULTIVITAMIN TABLET PO SCH (09:36)
[2020-01-24] MEDS: ASCORBIC ACID 500 MG TABLET PO SCH ×2 (09:36→17:29)
[2020-01-24] MEDS: ENOXAPARIN SODIUM INJ 40 MG/0.4 ML DISP.SYRIN SUBCUT SCH (09:36)
[2020-01-24] MEDS: ZINC SULFATE 220 MG CAPSULE PO SCH (09:36)
--- NOTE | 2020-01-24 16:33 | PDOC PROGRESS REPORT ---
Subjective Progress Note for:: 01/24/20 Subjective:: Patient seen on morning rounds. She is resting upright in her chair with her food tray in front of her. She notes overall significant improvement with treatment thus far. She does ask for assistance with a lifting and moving her legs stating she is unable to lift her legs on her own. She tells me that she was seen by physical therapy and was able to walk around with them. When discussing treatment options for the patient she stated that she is not interested in a rehabilitation center at this time adding that her grandsons live at home with her and that her daughters are prepared to treat her to help her at her house. She also states that she does not want the rehabilitation center to take her "check" and expresses concerns if she goes to a [facility]habil[facility] center that she will be unable to pay for her apartment that she lives in. Clarified to the patient that she does have insurance which will help, and the payment of the rehabilitation center, this would be a short term stay at a rehabilitation center with the goal of transitioning her back home once she is feeling better. She states that she understands and needs to discuss with her daughters. Of note myself and Dr. Jones had similar conversations with the patient, both ending in the pt needing to discuss with her daughter prior to further decision making. Upon further questioning the patient denies any fever, chills, chest pain, palpitations, cough, abdominal pain, nausea vomiting or diarrhea. Discussed case with patient nurse. Nurse provides me with no concerns or complaints at this time. Reason For Visit: BILATERAL CELLULITIS,VENOUS STASIS DERMATITIS Physical Exam Vital Signs: Temp Pulse Resp BP Pulse Ox 97.7 F 61 15 135/70 H 98 01/24/20 11:18 01/24/20 11:18 01/24/20 11:18 01/24/20 11:18 01/24/20 11:18 Intake & Output 01/23/20 01/24/20 01/25/20 06:59 06:59 06:59 Intake Total 2170 735 Output Total 300 900 Balance 1870 -165 Weight 91 kg 90.6 kg General appearance: PRESENT: no acute distress, cooperative, obese Head exam: PRESENT: atraumatic, normocephalic Eye exam: PRESENT: EOMI, PERRLA. ABSENT: scleral icterus Mouth exam: PRESENT: dry mucosa, neck supple, tongue midline Neck exam: PRESENT: full ROM. ABSENT: JVD, lymphadenopathy, tenderness, thyromegaly Respiratory exam: PRESENT: clear to auscultation phyllis, symmetrical, unlabored. ABSENT: crackles, rhonchi, wheezes Cardiovascular exam: PRESENT: RRR, +S1, +S2. ABSENT: diastolic murmur, systolic murmur Pulses: PRESENT: normal radial pulses GI/Abdominal exam: PRESENT: soft. ABSENT: firm, tenderness Extremities exam: PRESENT: pedal edema, +2 edema Musculoskeletal exam: PRESENT: ambulatory, tenderness. ABSENT: deformity, dislocation Neurological exam: PRESENT: alert, awake, oriented to person, oriented to place, oriented to time, oriented to situation. ABSENT: altered Psychiatric exam: PRESENT: appropriate affect, normal mood Skin exam: PRESENT: dry, erythema - Right lower extremity extending from ankle to the base of knee, this is improved from yesterday., warm - Right lower extremity remains angulated., other - Left anterior leg full-thickness venous ulcer with serous drainage. Normal cobblestoning and keratin scaling on both lower extremities with the left appearing more chronic. Toenails with ayo horn apperance Results Laboratory Results: 01/24/20 05:38 01/24/20 05:38 01/24/20 01/24/20 05:38 05:38 WBC 8.0 RBC 3.78 Hgb 11.4 L Hct 33.9 L MCV 90 MCH 30.3 MCHC 33.8 RDW 14.1 H Plt Count 198 Seg Neutrophils % 78.5 H Sodium 135.9 L Potassium 4.3 Chloride 105 Carbon Dioxide 23 Anion Gap 8 BUN 19 Creatinine 0.84 Est GFR ( Amer) > 60 Glucose 107 Calcium 8.1 L Magnesium 2.1 01/22/20 12:53 Blood Blood Culture (PCR) - Final 01/22/20 14:34 Catheterized Urine Urine Culture - Final NO GROWTH 2 DAYS 01/22/20 01/23/20 11:17 06:21 Creatine Kinase 559 H 836 H Impressions: Head CT 01/22/20 10:52 IMPRESSION: MILD CHRONIC CHANGES OF ATROPHY AND MICROVASCULAR ISCHEMIA. NO ACUTE PROCESS. EVIDENCE OF ACUTE STROKE: NO. 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 No acute pulmonary findings. Tibia/Fibula X-Ray 01/22/20 13:28 IMPRESSION: No evidence of acute bony abnormality of either tibia or fibula. Significant bilateral lower extremity subcutaneous edema. Venous Doppler Study 01/22/20 13:29 IMPRESSION: No evidence of DVT or SVT to the level of the popliteal veins in either lower extremity. Limited evaluation of the tibials secondary to excessive edema. Assessment and Plan - Diagnosis (1) Cellulitis of right lower extremity Is this a current diagnosis for this admission?: Yes (2) Acute kidney injury Is this a current diagnosis for this admission?: Yes (3) Cardiomegaly Is this a current diagnosis for this admission?: Yes (4) Leg pain, bilateral Is this a current diagnosis for this admission?: Yes (5) Leukocytosis Qualifiers: Leukocytosis type: bandemia Qualified Code(s): D72.825 - Bandemia Is this a current diagnosis for this admission?: Yes (6) Stasis edema with ulcer of both lower extremities Is this a current diagnosis for this admission?: Yes (7) Venous stasis dermatitis Qualifiers: Laterality: bilateral Qualified Code(s): I87.2 - Venous insufficiency (chronic) (peripheral) Is this a current diagnosis for this admission?: Yes (8) Hyponatremia Is this a current diagnosis for this admission?: Yes - Plan Summary Summary: The patient be admitted to the hospitalist service. She received IV fluids and IV antibiotics. We will monitor her electrolytes. She will require analgesia. A wound care consult has been ordered as well 01/24/2020: Patient was evaluated by physical therapy today. This note was reviewed in great detail. It is my understanding that the patient required assistance with walking experience difficulty ambulating distance as she experienced dizziness. Outpatient physical therapy was recommended upon discharge. This is 1 of many reasons and I believe the patient would benefit greatly from a acute rehabilitation center following disposition from the hospital. I do plan to discuss this further with both the patient and the daughter. Cellulitis right lower extremity 01/22/2020-patient with marked cellulitis bilateral lower extremities. Significant inflammatory burden noted. Due to multiple allergies will utilize aztreonam and clindamycin. We will hold on vancomycin due to her acute kidney injury. 01/23/2020- RLE remains warm to the touch and erythematous. We will discontinue aztreonam at this time. Continue with clindamycin as this provides sufficient c overage. Suspect this is the cause of leukocytosis. 01/24/2020-right lower extremity continues to improve in appearance. Leukocytosis has resolved with clindamycin. Continue with clindamycin at this time. Stasis dermatitis both legs 01/22/2020-patient with erythema, cobblestoning and keratin scaling suggestive of stasis dermatitis with chronicity. Will benefit from compression. Will need improvement in cellulitis and leg pain prior to applying compression. 01/23/2020- Awaiting improvement in cellulitis prior to treatment with compression. Wound care has been consulted, appreciate input. Wound care recommend hibi-clense, silver dressings and outpatient f/u at [facility]. 01/24/2020-continue with treatment as per wound care recommendations. Stasis ulcers bilateral 01/22/2020-sporadic small ulcerations both lower legs. She is having heel discomfort but there is no broken skin. We will need to elevate legs in order offloading boots such as Prevalon boots with wedges. 01/23/2020-Small ulcer bilateral LE with LLE>RLE. Prevalon boots with wedges for offloading. Wound care consult placed, appreciate input. 01/24/2020-continue with treatment as per wound care recommendations. Bilateral leg pain 01/22/2020-significant leg pain. Given the marked erythema and skin warmth of the legs the pain complaints are certainly appropriate. Hopefully with antibiotic therapy and reduction of edema the pain will subside. 01/23/2020-Continue leg pain. Minimal improvement with abx therapy, suspect greater improvement once edema decreases. Physical therapy consulted for evaluation. 01/24/2020-pain in her legs has improved. Patient was evaluated by PT, note was reviewed. PT recommended 1 to days a week continued outpatient PT upon discharge. Pt without pain bilateral lower extremities with ambulation. Leukocytosis 01/22/2020-white blood cell count significantly elevated at 26.6. Treatment with antibiotics and fluids should help resolve this. I also believe there is a marked inflammatory change and this is the cause of the increased D-dimer and creatinine kinase. Doppler studies were negative for DVT in both lower legs. 01/23/2020-WBC improved 26.6 -> 17.0 with azoreonam and clindamycin day 2. BC, UC negative at this time. No other signs of infection on skin exam outside of bilateral LE edema and erythema with RLE > LLE. Aztreonam discontinued at this time, believe clinadmycin provides sufficient coverage. 01/24/2020- WBC 8.0 with clindamycin tx. 01/22/2020 blood culture resulted gram- positive tita and gram-positive cocci in chains. Second blood culture from 01/22/2020 with no growth after 48 hours. Suspect secondary to contamination. With this said, clindamycin provides proper coverage. Repeat blood cultures ordered with pending results. Acute kidney injury 01/22/2020-we will administer gentle IV fluids and monitor renal function. We will also monitor intake and output. 01/23/2020-Cr improved (1.36 -> 1.902) and BUN improved (32 -> 26) with IV fluids. Continue to monitor, continue with IVF 01/24/2020- Resolved. Cr 0.84, BUN 19. Discontinue IVF at this time. Cardiomegaly 01/22/2020-x-ray reveals cardiomegaly with possible enlargement of the aortic arch. We will obtain an echocardiogram to assess for heart failure as well as initial evaluation of the proximal aorta. If indicated consider CT scan of the chest. The patient will not be able to have contrast as she is allergic to iodinated contrast media and has an acute kidney injury. 01/23/2020-Echo pending results. 01/24/2020- Echo: LVEF 60 to 65%. Letter MR, moderate AI, moderate TR. Normal aortic root dimension. Unable to visualize proximal ascending aorta last known measurement obtained. Consider CT of the chest without contrast. No further treatment necessary at this time. Hyponatremia 01/23/2020- NA on admission 132.2 -> 131.1 today. NaCl PO. Monitor on BMP daily. 01/24/2020- 131.1 -> 135.9. Discontinue IV fluids at this time. - Time Time Spent with patient: 15-24 minutes Medications reviewed and adjusted accordingly: Yes Anticipated Discharge Disposition: Alf Facility Anticipated Discharge Timeframe: within 24 hours
[2020-01-25] MEDS: CLINDAMYCIN 900 MG/D5W RTU 900 MG/50 ML RTUPB IV SCH ×2 (01:59→10:12)
[2020-01-25] MEDS ORDERED: INFLUENZA QUAD (6MOS+) 2020-21 VAC 0.5 ML SYR IM ONE (08:00)
[2020-01-25 08:54] LABS: ABSOLUTE BASOPHILS # (AUTO) 0.1 10^3/uL (0.0-0.2); ABSOLUTE EOSINOPHILS # (AUTO) 0.1 10^3/uL (0.0-0.6); ABSOLUTE LYMPHOCYTES (AUTO) 1.2 10^3/uL (0.5-4.7); ABSOLUTE MONOCYTES (AUTO) 0.9 10^3/uL (0.1-1.4); ABSOLUTE NEUT (AUTO) 6.7 10^3/uL (1.7-8.2); BASOPHILS % (AUTO) 1.1 % (0-2); EOSINOPHILS % (AUTO) 1.3 % (0-6); HEMATOCRIT 35.9 % (36.0-47.0); HEMOGLOBIN 12.1 g/dL (12.0-15.5); LYMPHOCYTES % (AUTO) 12.9 % (13-45); MEAN CORPUSCULAR HEMOGLOBIN 30.1 pg (27.0-33.4); MEAN CORPUSCULAR HGB CONC 33.7 g/dL (32.0-36.0); MEAN CORPUSCULAR VOLUME 89 fl (80-97); MONOCYTES % (AUTO) 9.5 % (3-13); PLATELET COUNT 236 10^3/uL (150-450); RED BLOOD COUNT 4.02 10^6/uL (3.72-5.28); RED CELL DISTRIBUTION WIDTH 13.8 % (11.5-14.0); SEGMENTED NEUTROPHILS % (AUTO) 75.2 % (42-78); TOTAL CELLS COUNTED % (AUTO) 100 %
[2020-01-25 09:27] LABS: ANION GAP 10 (5-19); BLOOD UREA NITROGEN 15 mg/dL (7-20); CALCIUM 8.1 mg/dL (8.4-10.2); CARBON DIOXIDE 20 mmol/L (22-30); CHLORIDE 104 mmol/L (98-107); GLUCOSE 89 mg/dL (75-110)
[2020-01-25] MEDS: MULTIVITAMIN TABLET PO SCH (10:10)
[2020-01-25] MEDS: ASCORBIC ACID 500 MG TABLET PO SCH (10:10)
[2020-01-25] MEDS: ENOXAPARIN SODIUM INJ 40 MG/0.4 ML DISP.SYRIN SUBCUT SCH (10:11)
[2020-01-25] MEDS: ZINC SULFATE 220 MG CAPSULE PO SCH (10:11)
[2020-01-25] MEDS: ACETAMINOPHEN 325 MG TABLET PO PRN (11:51)
--- NOTE | 2020-01-25 14:51 | PDOC TRANSFER SUMMARY ---
Impression - Admit/DC Date/PCP Admission Date/Primary Care Provider: 01/22/20 17:55 Discharge Date: 01/25/20 - Discharge Diagnosis (1) Acute kidney injury Is this a current diagnosis for this admission?: Yes (2) Cardiomegaly Is this a current diagnosis for this admission?: Yes (3) Cellulitis of right lower extremity Is this a current diagnosis for this admission?: Yes (4) Hyponatremia Is this a current diagnosis for this admission?: Yes (5) Leg pain, bilateral Is this a current diagnosis for this admission?: Yes (6) Leukocytosis Is this a current diagnosis for this admission?: Yes (7) Stasis edema with ulcer of both lower extremities Is this a current diagnosis for this admission?: Yes (8) Venous stasis dermatitis Is this a current diagnosis for this admission?: Yes - Assessment Summary: Ms. Rafal Borja is a 79 year old woman with bilateral lower extremity venous stasis who presented on 01/22/2020 due to generalized weakness and worsening BLE edema. right lower extremity non-purulent cellulitis: she has a penicillin allergy, so she was treated with Clindamycin. One out of two BCx on admission grew multiple bacteria, likely due to contamination. All other BCx have shown no growth to date. She has completed 3 days of antibiotic therapy while inpatient, and Clindamycin has been switched to PO for another 4 days (Total: 7 days of therapy). Severe bilateral lower extremity venous stasis and lymphedema: she has erythema, cobblestoning and keratin scaling suggestive of stasis dermatitis with chronicity. She was evaluated by wound care and will benefit from compression and lymphedema treatment in the future. However, she will need improvement in acute cellulitis prior to applying compression. Wound care recommend daily Hibiclens antimicrobial washes to legs, silver dressings and outpatient f/u at [facility] clinic. Her legs should be elevated at all times when not ambulating. Stasis ulcerations of bilateral legs: she has small ulcerations to both lower legs. Will need to elevate legs in offloading boots such as Prevalon boots with wedges. Neutrophilic Leukocytosis: resolved with antibiotic therapy. Acute kidney injury: was due to dehydration in the setting of infection, and resolved with IVF administration. Cardiomegaly: seen on CXR on admission. TTE this admission showed LVEF 60 to 65%, moderate AI, moderate TR and normal aortic root dimension. She has had no clinical evidence of CHF this admission. Hypovolemic Hyponatremia: due to dehydration, resolving with IVF. - Additional Information Resuscitation Status: Full Code Discharge Diet: Cardiac Discharge Activity: Activity As Tolerated, Keep Legs Elevated, Walk Frequently Referrals: YAMILETH TAYLOR MD [ACTIVE STAFF] - Follow up as needed Prescriptions: Acetaminophen [Acetaminophen Extra Strength] 1,000 mg PO TIDP PRN #30 PRN Reason: FOR PAIN AND HEADACHE Lactobacillus Combination No.8 [Adult Probiotic] 1 each PO DAILY #30 capsule Clindamycin HCl 300 mg PO Q6H #16 capsule Home Medications: Acetaminophen [Acetaminophen Extra Strength] 1,000 mg PO TIDP PRN #30 01/25/20 Clindamycin HCl 300 mg PO Q6H #16 capsule 01/25/20 Lactobacillus Combination No.8 [Adult Probiotic] 1 each PO DAILY #30 capsule 01/25/20 Ondansetron [Zofran Odt 4 mg Tablet] 4 mg PO Q4HP PRN tab.rapdis 01/25/20 History of Present Illiness History of Present Illness: RAFAL BORJA is a 79 year old female Physical Exam Vital Signs: Temp Pulse Resp BP Pulse Ox 98.6 F 81 16 149/80 H 98 01/25/20 11:18 01/25/20 11:18 01/25/20 11:18 01/25/20 11:18 01/25/20 11:18 Intake & Output 01/24/20 01/25/20 01/26/20 06:59 06:59 06:59 Intake Total 735 1410 50 Output Total 900 Balance -165 1410 50 Weight 90.6 kg 90.6 kg Results Laboratory Results: WBC 9.0 10^3/uL (4.0-10.5) 01/25/20 08:06 RBC 4.02 10^6/uL (3.72-5.28) 01/25/20 08:06 Hgb 12.1 g/dL (12.0-15.5) 01/25/20 08:06 Hct 35.9 % (36.0-47.0) L 01/25/20 08:06 MCV 89 fl (80-97) 01/25/20 08:06 MCH 30.1 pg (27.0-33.4) 01/25/20 08:06 MCHC 33.7 g/dL (32.0-36.0) 01/25/20 08:06 RDW 13.8 % (11.5-14.0) 01/25/20 08:06 Plt Count 236 10^3/uL (150-450) 01/25/20 08:06 Lymph % (Auto) 12.9 % (13-45) L 01/25/20 08:06 [place] % (Auto) 9.5 % (3-13) 01/25/20 08:06 Eos % (Auto) 1.3 % (0-6) 01/25/20 08:06 Baso % (Auto) 1.1 % (0-2) 01/25/20 08:06 Absolute Neuts (auto) 6.7 10^3/uL (1.7-8.2) 01/25/20 08:06 Absolute Lymphs (auto) 1.2 10^3/uL (0.5-4.7) 01/25/20 08:06 Absolute Monos (auto) 0.9 10^3/uL (0.1-1.4) 01/25/20 08:06 Absolute Eos (auto) 0.1 10^3/uL (0.0-0.6) 01/25/20 08:06 Absolute Basos (auto) 0.1 10^3/uL (0.0-0.2) 01/25/20 08:06 Total Counted 100 01/22/20 11:17 Seg Neutrophils % 75.2 % (42-78) 01/25/20 08:06 Seg Neuts % (Manual) 87 % (42-78) H 01/22/20 11:17 Band Neutrophils % 2 % (3-5) L 01/22/20 11:17 Lymphocytes % (Manual) 4 % (13-45) L 01/22/20 11:17 Atypical Lymphs % 1 % (0) 01/22/20 11:17 Monocytes % (Manual) 5 % (3-13) 01/22/20 11:17 Eosinophils % (Manual) 1 % (0-6) 01/22/20 11:17 Basophils % (Manual) 0 % (0-2) 01/22/20 11:17 Abs Neuts (Manual) 23.7 10^3/uL (1.7-8.2) H 01/22/20 11:17 Abs Lymphs (Manual) 1.3 10^3/uL (0.5-4.7) 01/22/20 11:17 Abs Monocytes (Manual) 1.3 10^3/uL (0.1-1.4) 01/22/20 11:17 Absolute Eos (Manual) 0.3 10^3/uL (0.0-0.6) 01/22/20 11:17 Abs Basophils (Manual) 0.0 10^3/uL (0.0-0.2) 01/22/20 11:17 Clumped Platelets PRESENT 01/22/20 11:17 Platelet Comment ADEQUATE 01/22/20 11:17 RBC Morph Comment NORMO-CYTIC/CHROMIC 01/22/20 11:17 PT 17.4 SEC (11.4-15.4) H 01/23/20 06:21 INR 1.41 01/23/20 06:21 APTT 38.0 SEC (23.5-35.8) H 01/22/20 11:17 D-Dimer 1.73 ug/mL (0.00-0.50) H 01/23/20 06:21 Sodium 133.9 mmol/L (137-145) L 01/25/20 08:06 Potassium 5.0 mmol/L (3.6-5.0) 01/25/20 08:06 Chloride 104 mmol/L (98-107) 01/25/20 08:06 Carbon Dioxide 20 mmol/L (22-30) L 01/25/20 08:06 Anion Gap 10 (5-19) 01/25/20 08:06 BUN 15 mg/dL (7-20) 01/25/20 08:06 Creatinine 0.71 mg/dL (0.52-1.25) 01/25/20 08:06 Est GFR ( Amer) > 60 (>60) 01/25/20 08:06 Est GFR (MDRD) Non-Af > 60 (>60) 01/25/20 08:06 Glucose 89 mg/dL (75-110) 01/25/20 08:06 Hemoglobin A1c % 5.7 % (4.7-6.0) 01/23/20 06:21 Calcium 8.1 mg/dL (8.4-10.2) L 01/25/20 08:06 Phosphorus 3.0 mg/dL (2.5-4.5) 01/22/20 11:17 Magnesium 2.2 mg/dL (1.6-2.3) 01/25/20 08:06 Total Bilirubin 1.1 mg/dL (0.2-1.3) 01/22/20 11:17 Direct Bilirubin 0.5 mg/dL (0.0-0.4) H 01/22/20 11:17 Neonat Total Bilirubin Not Reportable 01/22/20 11:17 Neonat Direct Bilirubin Not Reportable 01/22/20 11:17 Neonat Indirect Bili Not Reportable 01/22/20 11:17 AST 50 U/L (14-36) H 01/22/20 11:17 ALT 23 U/L (<35) 01/22/20 11:17 Alkaline Phosphatase 50 U/L (38-126) 01/22/20 11:17 Creatine Kinase 836 U/L (30-135) H 01/23/20 06:21 Total Protein 7.7 g/dL (6.3-8.2) 01/22/20 11:17 Albumin 4.0 g/dL (3.5-5.0) 01/22/20 11:17 Lipase 33.3 U/L (23-300) 01/22/20 11:17 Urine Color JOHNATHON 01/22/20 14:34 Urine Appearance SLIGHTLY-CLOUDY 01/22/20 14:34 Urine pH 5.0 (5.0-9.0) 01/22/20 14:34 Ur Specific [place] 1.029 01/22/20 14:34 Urine Protein 100 mg/dL (NEGATIVE) H 01/22/20 14:34 Urine Glucose (UA) NEGATIVE mg/dL (NEGATIVE) 01/22/20 14:34 Urine Ketones NEGATIVE mg/dL (NEGATIVE) 01/22/20 14:34 Urine Blood SMALL (NEGATIVE) H 01/22/20 14:34 Urine Nitrite NEGATIVE (NEGATIVE) 01/22/20 14:34 Urine Bilirubin NEGATIVE (NEGATIVE) 01/22/20 14:34 Urine Urobilinogen 2.0 mg/dL (<2.0) H 01/22/20 14:34 Ur Leukocyte Esterase NEGATIVE (NEGATIVE) 01/22/20 14:34 Urine WBC (Auto) 4 /HPF 01/22/20 14:34 Urine RBC (Auto) 4 /HPF 01/22/20 14:34 U Hyaline Cast (Auto) 8 /LPF 01/22/20 14:34 Squamous Epi Cells Auto 2 /HPF 01/22/20 14:34 Urine Mucus (Auto) FEW /LPF 01/22/20 14:34 Urine Ascorbic Acid NEGATIVE (NEGATIVE) 01/22/20 14:34 COVID-19 Source See comment 01/24/20 09:40 COVID-19 (RAMIREZ) Not Detected (Not Detect) 01/24/20 09:40 Impressions: Head CT 01/22/20 10:52 IMPRESSION: MILD CHRONIC CHANGES OF ATROPHY AND MICROVASCULAR ISCHEMIA. NO A CUTE PROCESS. EVIDENCE OF ACUTE STROKE: NO. 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 No acute pulmonary findings. Tibia/Fibula X-Ray 01/22/20 13:28 IMPRESSION: No evidence of acute bony abnormality of either tibia or fibula. Significant bilateral lower extremity subcutaneous edema. Venous Doppler Study 01/22/20 13:29 IMPRESSION: No evidence of DVT or SVT to the level of the popliteal veins in either lower extremity. Limited evaluation of the tibials secondary to excessive edema. Stroke Is this a Stroke Patient?: No Acute Heart Failure Is this a Heart Failure Patient?: No
[2020-01-25 16:08] VITALS: BP 146/71
== END 2020-01-25 17:54 | DRG 603 ==
LOC: ER 10:23 → EH 17:55 → 4W 20:20
PROVIDERS: ADMIT Hospitalist; ATTEND Physician Assistant
PROC: B24BZZ4 Ultrasonography of Heart with Aorta, Transesophageal (ICD-10-PCS; principal; 2020-01-23)
DX: L03.115 Cellulitis of right lower limb (principal); N17.9 Acute kidney failure, unspecified; E87.1 Hypo-osmolality and hyponatremia; L03.116 Cellulitis of left lower limb; I83.029 Varicose veins of left lower extremity with ulcer of unspecified site; I83.019 Varicose veins of right lower extremity with ulcer of unspecified site; I83.024 Varicose veins of left lower extremity with ulcer of heel and midfoot; I87.2 Venous insufficiency (chronic) (peripheral); I51.7 Cardiomegaly; Z03.818 Encounter for observation for suspected exposure to other biological agents ruled out; Z80.9 Family history of malignant neoplasm, unspecified; Z82.49 Family history of ischemic heart disease and other diseases of the circulatory system; Z88.8 Allergy status to other drugs, medicaments and biological substances; Z88.6 Allergy status to analgesic agent; Z91.041 Radiographic dye allergy status
CPT/HCPCS: 36415; 70450; 71045; 80048; 80053; 81001; 82550; 83036; 83690; 83735; 84100; 85025; 85379; 85610; 85730; 87040; 87077; 87086; 87150; 87635; 93306; 93970; C9803; J1650; J3370; J3490; J7030; J7060